=== PATIENT | male | born 1965 | race Caucasian/White ===

== ENCOUNTER → 2016-10-12 | Outpatient (CLI) | payer BC ==
[~2016-10-12] MED LIST: AMOXICILLIN500 M1 PO; IBUPROFEN800 MG PO
--- NOTE | ~2016-10-12 | US6 ---
[facility] A Service of [facility] RADIOLOGY TEXT RESULTS PATIENT: YAHAIRA WOODY LOCATION: [facility] : 67 UNIT #: [id number] AGE: [address]: Reggie Powell MD SEX: M ORDER DR: [id number] [address] [address] [id number] MR#: [id number] Acc #: [id number] NAME: YAHAIRA WOODY : 1965 SEX: M STUDY DATE/TIME: 10/12/2016 10:42 UNIT: SGUS ROOM: STUDY DESCRIPTION: US Abdominal Limited Attending Physician: Reggie Powell III, M.D. Referring Physician: Reggie Powell III, M.D. Ordering Physician: Regige Powell III, M.D. Primary Care Physician: No Primary Care Physician MEDICAL IMAGING REPORT This report is preliminary unless electronic signature is present. EXAM Right upper quadrant ultrasound, 10/12/2016. INDICATION Hepatitis C virus. "Stomach pain that makes him black out sometimes for the past three years." Intermittent vomiting for three years. TECHNIQUE Sonographic imaging of the right upper quadrant was performed. COMPARISON There are no comparisons. FINDINGS Visualized aspects of the pancreas are unremarkable. Survey images of the liver are unremarkable. The liver measures 15.6 cm long axis. The right kidney is nonobstructed and measures 9.5 cm long axis. The gallbladder is sonographically unremarkable. No sonographic Sherman sign was described. Extrahepatic common bile duct measures about 3 mm. IMPRESSION Negative right upper quadrant ultrasound. Dictated by... Ricco Lawrence M.D. THIS IS AN ELECTRONICALLY VERIFIED REPORT Ricco Lawrence M.D. at 10/12/2016 3:00 PM MANFRED/se [facility] A Service of [facility] RADIOLOGY TEXT RESULTS PATIENT: YAHAIRA WOODY LOCATION: [facility] : 67 UNIT #: [id number] AGE: [address]: Reggie Powell MD SEX: M ORDER DR: TD: 10/12/2016 14:29 JOB #: [id number] MEDICAL IMAGING REPORT Page 1 of 1
== END | disposition home or self-care (01) ==
LOC: SGUS 09:28
DX: B18.2 Chronic viral hepatitis C (principal)
CPT/HCPCS: 76705